=== PATIENT | male | born 1950 | race Caucasian/White ===

== ENCOUNTER → 2017-12-19 | Day surgery (SDC) | payer OTHER, MEDICARE ==
[~2017-12-19] MED LIST: DESFLURANE 31 TO 60 MINUTES IH; DEXAMETHASONE SOD PHOS 20 MG/5 ML VIAL.; LIDOCAINE 1% PF 2 ML VIAL. ID; LIDOCAINE 2% PF Vial for OR 5 ML VIAL.; MORPHINE SULFATE 2 MG/ML DISP.SYRIN. IV; ONDANSETRON PF 4 MG/2 ML VIAL.; ONDANSETRON PF 4 MG/2 ML VIAL. IV; PHENYLEPHRINE in 0.9% NACL PF 1 MG/10 ML SYRINGE. IV; PROCHLORPERAZINE 10 MG/2 ML VIAL. IV; PROPOFOL 20 ML IV; ROCURONIUM 50 MG/5 ML VIAL.; SUCCINYLCHOLINE 200 MG/10 ML VIAL.; ceFAZolin 2GM PREMIX 2 GM/50 ML BAG IV; fentaNYL PF VIAL 100 MCG/2 ML VIAL IV
[2017-12-19] MEDS: IV RINGERS,LACTATED 1000ML 1,000 ML IV (13:01)
[2017-12-19 13:14] LABS: POC GLUCOSE 104 mg/dL (70-99)
[2017-12-19] MEDS: BUPIVACAINE-EPI 0.25%-1:200000 50 ML VIAL. (14:41)
[2017-12-19] MEDS: CHLORHEXIDINE 0.12% 15 ML MOUTHWASH. SWSP (15:04)
[2017-12-19] MEDS: PHENYLEPH/MINERAL OIL/PETROLAT RECTAL OINTMENT 28GM TUBE. RC (15:05)
[2017-12-19 15:46] LABS: POC GLUCOSE 145 mg/dL (70-99)
== END ==
LOC: SURG 12:24
DX: K13.0 Diseases of lips (principal); L57.0 Actinic keratosis; F41.9 Anxiety disorder, unspecified; I11.0 Hypertensive heart disease with heart failure; J44.9 Chronic obstructive pulmonary disease, unspecified; E78.5 Hyperlipidemia, unspecified; F32.9 Major depressive disorder, single episode, unspecified; F17.210 Nicotine dependence, cigarettes, uncomplicated; M19.90 Unspecified osteoarthritis, unspecified site; I45.10 Unspecified right bundle-branch block; E11.9 Type 2 diabetes mellitus without complications; I25.2 Old myocardial infarction; Z79.4 Long term (current) use of insulin; Z88.1 Allergy status to other antibiotic agents; Z95.1 Presence of aortocoronary bypass graft; Z98.61 Coronary angioplasty status; Z88.2 Allergy status to sulfonamides; Z79.899 Other long term (current) drug therapy; Z79.82 Long term (current) use of aspirin; Z98.890 Other specified postprocedural states; Z82.49 Family history of ischemic heart disease and other diseases of the circulatory system
CPT/HCPCS: 40812; 82962; 88302; A7015; J0330; J0690; J1100; J2001; J2370; J2405; J2704